=== PATIENT | female | born 1955 | race African-American/Black ===

== ENCOUNTER 2021-01-25 12:30 | Inpatient (IN) | payer OTHER ==
[~2021-01-25] VITALS: Ht 165.1 cm; Wt 81.2 kg
[2021-01-25] MEDS ORDERED: HCTZ (12:36)
[2021-01-25] MEDS ORDERED: GLIPIZIDE (12:36)
[2021-01-25] MEDS ORDERED: LISINOPRIL (12:36)
[2021-01-25] MEDS ORDERED: METFORMIN (12:36)
[2021-01-25 14:17] LABS: CHLORIDE 94 mEq/L (98-107)
[2021-01-25 14:20] LABS: HEMATOCRIT. 35.1 % (36.0-48.0); HEMOGLOBIN. 11.4 g/dL (12.0-16.0); MEAN CORPUSCULAR HEMOGLOBIN 28.2 pg (28.0-32.0); RED BLOOD CELL COUNT 4.03 mill/uL (4.2-5.4); RED CELL DISTRIBUTION WIDTH 13.4 % (11.6-14.6)
[2021-01-25 18:04] LABS: MEAN PLATELET VOLUME 7.3 fl (7.4-10.4); PLATELET 375 x1000/uL (130-400); PLATELET ESTIMATE NORMAL
[2021-01-25] MEDS ORDERED: IOHEXOL-350 100 ML BOTTLE ONE (23:25)
[2021-01-26 04:00] VITALS: BP 138/65
[2021-01-26 04:50] VITALS: BP 138/65
[2021-01-26] MEDS ORDERED: HYDROCODONE/ACETAMINOPHEN 5/325MG TABLET PO PRN (07:00)
[2021-01-26] MEDS ORDERED: DEXTROSE 50% WATER 50ML SYRINGE IV PRN (07:00)
[2021-01-26] MEDS ORDERED: NALOXONE HCL 0.4MG/ML VIAL IV PRN (07:15)
[2021-01-26] MEDS: BLOOD SUGAR DIAGNOSTIC STRIP TEST SCH ×3 (07:20→17:45)
[2021-01-26] MEDS: INSULIN LISPRO 100 UNITS/ML SUBCUT SCH ×2 (07:50→14:05)
[2021-01-26 08:00] VITALS: BP 135/64
[2021-01-26] MEDS ORDERED: SODIUM CHLORIDE 0.9% 1,000 ML IV SCH (08:00)
[2021-01-26 08:54] LABS: BASOPHILS % 0.5 % (0.0-2.0); EOSINOPHILS % 0.9 % (0.0-5.0); HEMOGLOBIN. 11.4 g/dL (12.0-16.0); LYMPHOCYTES % 30.8 % (20.0-50.0); MEAN CORPUSCULAR HEMOGLOBIN 28.1 pg (28.0-32.0); MEAN CORPUSCULAR VOLUME 86.4 fL (81.0-99.0); MEAN PLATELET VOLUME 6.6 fl (7.4-10.4); MONOCYTES % 10.4 % (2.0-8.0); NEUTROPHILS % 57.4 % (40.0-76.0); PLATELET 384 x1000/uL (130-400); RED BLOOD CELL COUNT 4.05 mill/uL (4.2-5.4); RED CELL DISTRIBUTION WIDTH 13.5 % (11.6-14.6)
[2021-01-26] MEDS ORDERED: ENOXAPARIN 40MG/0.4ML SYR SUBCUT SCH (09:00)
[2021-01-26] MEDS ORDERED: ASPIRIN 81MG TABLET PO SCH (09:00)
[2021-01-26 09:08] LABS: CHLORIDE 93 mEq/L (98-107)
[2021-01-26 09:17] LABS: LDL CHOLESTEROL 60 mg/dL (5-100)
[2021-01-26 09:18] LABS: HDL CHOLESTEROL 75 mg/dL (40-59)
[2021-01-26] MEDS ORDERED: AMLODIPINE 2.5MG TABLET PO SCH (11:00)
[2021-01-26 12:00] VITALS: BP 147/73
[2021-01-26 16:00] VITALS: BP 128/54
[2021-01-26 16:22] LABS: CREATINE KINASE 297 IU/L (26-192)
[2021-01-26 16:23] LABS: CREATINE KINASE MB FRACTION 1.7 ng/mL (0.5-3.6)
[2021-01-26 18:57] VITALS: BP 128/54
== END 2021-01-26 19:50 | disposition short-term general hospital (02) | DRG 312 ==
LOC: ER 12:45 → CANBEDREQ 21:42 → 6WST 01-26 00:11 → ENRESERV 01-26 02:46
PROVIDERS: ADMIT Internal Medicine; ATTEND Internal Medicine
DX: R55 Syncope and collapse (principal); E87.1 Hypo-osmolality and hyponatremia; J45.909 Unspecified asthma, uncomplicated; E11.9 Type 2 diabetes mellitus without complications; I10 Essential (primary) hypertension; E78.5 Hyperlipidemia, unspecified; I45.10 Unspecified right bundle-branch block; Z20.822 Contact with and (suspected) exposure to COVID-19
CPT/HCPCS: 36415; 71045; 71275; 80053; 80061; 82550; 82553; 82962; 83036; 83880; 83930; 84443; 84484; 85025; 85379; 87426; 93005; 93306; 99285; J1650; J1815; J7030; Q9967